=== PATIENT | female | born 1975 | race African-American/Black ===

== ENCOUNTER 2016-09-14 09:37 | Emergency (ER) | payer OTHER ==
[~2016-09-14] VITALS: Ht 175.3 cm; Wt 84.8 kg
[~2016-09-14 09:37] MED LIST: FLEXERIL10 MG PO; HYCODAN SYRUP480 ML PO; HYDROCODON-ACE1 EAC7 PO; IBUPROFEN800 MG PO; LORTAB 5-325 M1 EACH PO; METHOCARBAMOL750 MG PO; MOTRIN600 MG PO; NOHOMEMEDS; NORCO 5/3251 TABLET PO; PEN-VEE K,VEET500 MG PO; PERCOCET 5/31 TABLET PO; PREDNISONE10 MG PO; TESSALON200 MG PO; VALIUM5 MG PO
[2016-09-14 10:12] LABS: HEMATOCRIT 44.5 % (36.0-46.0); MCH 32.2 PG (29.0-34.0); MCHC 34.6 G/DL (30.0-36.0); MCV 93.1 FL (83-99); MEAN PLAT.VOLUME 10.9 uM^3 (9.5-12.4); PLATELET COUNT 316 K/uL (156-360); RBC DIS.WIDTH-CV 12.4 % (11.8-14.6); RBC DIS.WIDTH-SD 41.1 % (39-53); RED BLOOD COUNT 4.78 M/uL (3.80-5.20)
[2016-09-14 10:23] LABS: CHLORIDE 111 mEq/L (99-109); POTASSIUM 3.8 mEq/L (3.7-5.4); SODIUM 141 mEq/L (136-147)
[2016-09-14 10:25] LABS: GLUCOSE 87 mg/dL (70-99)
[2016-09-14 10:26] LABS: ANION GAP 5 MEQ/L (2-14)
[2016-09-14 10:29] LABS: GFR ESTIMATE (CALCULATED) > 59 mL/min/
[2016-09-14 10:30] LABS: UREA NITROGEN (BUN) 9 mg/dL (9-23)
[2016-09-14] MEDS ORDERED: ROBITUSSIN NIG118 ML PO (11:43)
[2016-09-14] MEDS ORDERED: MUCINEX600 MG PO (11:43)
[2016-09-14] MEDS ORDERED: FLONASE16 G1 BOTH NARES (11:43)
[2016-09-14] MEDS ORDERED: TESSALON PERLE100 MG PO (11:43)
[2016-09-14 11:55] VITALS: BP 102/58
[2016-09-14] MEDS ORDERED: MOTRIN800 MG PO (11:55)
== END 2016-09-14 11:57 | disposition home or self-care (01) ==
LOC: EME 09:37
DX: J06.9 Acute upper respiratory infection, unspecified (principal); J30.2 Other seasonal allergic rhinitis; H75.83 Other specified disorders of middle ear and mastoid in diseases classified elsewhere, bilateral; F17.210 Nicotine dependence, cigarettes, uncomplicated
CPT/HCPCS: 71020; 80048; 85027; 99281; 99284

== ENCOUNTER 2017-02-27 13:15 | Emergency (ER) | payer OTHER ==
[~2017-02-27] VITALS: Ht 175.3 cm; Wt 83.4 kg
[~2017-02-27 13:15] MED LIST changes: +FLONASE16 G1 BOTH NARES; +MOTRIN800 MG PO; +MUCINEX600 MG PO; +ROBITUSSIN NIG118 ML PO; +TESSALON PERLE100 MG PO
[2017-02-27] MEDS ORDERED: PREDNISONE20 MG PO (16:10)
[2017-02-27] MEDS ORDERED: MOTRIN800 MG PO (16:10)
[2017-02-27 16:18] VITALS: BP 124/67
== END 2017-02-27 16:19 | disposition home or self-care (01) ==
LOC: EME 13:15
DX: J02.0 Streptococcal pharyngitis (principal); F17.200 Nicotine dependence, unspecified, uncomplicated
CPT/HCPCS: 99281; 99284; J0561